=== PATIENT | male | born 1960 | race Hispanic/Latino ===

== ENCOUNTER 2017-05-13 05:43 | Emergency (ER) | payer OTHER ==
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
[2017-05-13 08:13] LABS: Basophils % (Auto) 0.8 % (0.0-1.8); Eosinophils % (Auto) 3.5 % (0.0-4.3); Hematocrit 48.4 % (35.5-45.6); Hemoglobin 16.4 gm/dl (11.8-15.2); Mean Corpuscular HGB Conc 34 % (32-34); Mean Corpuscular Hemoglobin 29 pg (28-32); Mean Corpuscular Volume 85 fl (84-94); Platelet Count 179 K/mm3 (140-440); Red Cell Distribution Width 13.8 % (13.2-15.2); White Blood Count 8.5 K/mm3 (4.5-11.0)
[2017-05-13 08:20] LABS: INR 0.86 (0.87-1.13)
[2017-05-13 08:25] LABS: BUN/Creatinine Ratio 19; Blood Urea Nitrogen 31 mg/dL (9-20); Calcium 9.5 mg/dL (8.4-10.2); Carbon Dioxide 25 mmol/L (22-30); Glucose 135 mg/dL (75-100)
[2017-05-13 08:26] LABS: Anion Gap 19 mmol/L; Chloride 101.8 mmol/L (98-107); Potassium 4.5 mmol/L (3.6-5.0); Sodium 141 mmol/L (137-145)
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
[2017-05-13] MEDS ORDERED: MORPHINE IM ONE (10:35)
[2017-05-13] MEDS ORDERED: ZOFRAN ODT PO ONE (10:35)
[2017-05-13 12:12] VITALS: BP 130/70
== END 2017-05-13 12:13 | disposition home or self-care (01) ==
LOC: ED 05:43
DX: S13.9XXA Sprain of joints and ligaments of unspecified parts of neck, initial encounter (principal); S20.212A Contusion of left front wall of thorax, initial encounter; N28.9 Disorder of kidney and ureter, unspecified; I10 Essential (primary) hypertension; F17.200 Nicotine dependence, unspecified, uncomplicated; Y93.89 Activity, other specified; Y92.89 Other specified places as the place of occurrence of the external cause; Y99.8 Other external cause status
CPT/HCPCS: 36415; 71020; 71100; 72125; 80048; 84484; 85025; 85610; 93005; 93010; 96372; 99285; J2270; Q0162